=== PATIENT | female | born 1945 | race Caucasian/White ===

== ENCOUNTER → 2017-06-17 | Outpatient (CLI) | payer MEDICARE, BC ==
[~2017-06-17] MED LIST: ASPIRIN 81MG TA81 MG PO; B-12500 MC1 PO; B12 INJ.,1000 MCG/M IM; BISOPROLOL 5MG T5 MG PO; CALCIUM PO; COQ-10100 MG PO; Ciprofloxacin250 MG PO; EFFEXOR XR150 MG PO; GOOD SENSE OMEP20 MG PO; HYDROCODONE-APA1 TA1 PO; K + POTASSIUM20 MEQ PO; LEVOTHYROXIN0.088 MG PO; LEVOTHYROXIN0.125 MG PO; LEVOTHYROXINE0.1 MG PO; MELOXICAM15 MG PO; MULTIVITAMIN1 TA1 PO; PRILOSEC OTC20 MG PO; SIMVASTATIN40 MG PO; VESICARE5 MG PO; VICODIN 5/500 T1 TAB PO; VITAMIN B122500 MC1 PO; VITAMIN D31000 IU PO
--- NOTE | 2017-06-17 12:38 | RADIOLOGY REPORT PS360 ---
ORBIT COMPARISON: Facial bones same date HISTORY: Patient fell hitting right side of face TECHNIQUE: Thrasher views and oblique views of the orbits FINDINGS: Both orbital rims and orbital floors appear intact. The maxillary ethmoid and frontal sinuses appear clear. IMPRESSION: Bilateral orbits negative for fracture
--- NOTE | 2017-06-17 12:38 | RADIOLOGY REPORT PS360 ---
FACIAL BONES 3 VIEWS COMPARISON: Orbital views same date HISTORY: Patient fell hitting right side of face TECHNIQUE: Thrasher view and Dao view and lateral view FINDINGS: The origins orbital floors appear intact. The peroneal sinuses appear clear. The nasal septum is in the midline with very minor bowing to the left. There is minor diffuse soft tissue swelling of the right infraorbital region. The mandible appears grossly intact. IMPRESSION: Fluoroscopy will soft tissue swelling right side, facial bones negative for fracture
--- NOTE | 2017-06-17 12:40 | RADIOLOGY REPORT PS360 ---
ELBOW-RT-3 VIEWS COMPARISON: None HISTORY: Right elbow pain after a fall TECHNIQUE: AP lateral and oblique views FINDINGS: The supracondylar humerus is intact. The radial head and olecranon fossa appear normal. There is no abnormal fat pad sign. IMPRESSION: Negative right elbow
--- NOTE | 2017-06-17 12:41 | RADIOLOGY REPORT PS360 ---
HUMERUS-RT COMPARISON: None HISTORY: Right arm pain after a fall TECHNIQUE: AP and oblique views FINDINGS: The humeral head and humeral shaft and supracondylar humerus appear intact with no evidence of recent or old fracture. The soft tissues are normal. IMPRESSION: Negative right humerus
--- NOTE | 2017-06-17 12:43 | RADIOLOGY REPORT PS360 ---
WRIST-3 VIEWS-RT COMPARISON: None HISTORY: Right wrist pain after a fall TECHNIQUE: AP lateral oblique views FINDINGS: The distal radius and ulna appear intact and the carpal bones are normal. There is no significant soft tissue swelling and foreign bodies. IMPRESSION: Right wrist negative for fracture
--- NOTE | 2017-06-17 13:33 | RADIOLOGY REPORT PS360 ---
FOREARM-RT COMPARISON: None HISTORY: Right forearm pain after a fall TECHNIQUE: AP and lateral views FINDINGS: The radius and ulna appear intact with no evidence of fracture. The soft tissues are normal. IMPRESSION: Negative right forearm
== END ==
LOC: RAD 11:31
DX: S69.91XA Unspecified injury of right wrist, hand and finger(s), initial encounter (principal); S59.911A Unspecified injury of right forearm, initial encounter; S49.91XA Unspecified injury of right shoulder and upper arm, initial encounter; S09.93XA Unspecified injury of face, initial encounter